=== PATIENT | female | born 1985 | race American Indian/Alaskan Native ===

== ENCOUNTER 2018-04-22 13:37 | Emergency (ER) | payer SELFPAY ==
[2018-04-22 13:58] VITALS: BP 151/79
[2018-04-22] MEDS ORDERED: TYLENOL PO ONE (14:07)
--- NOTE | 2018-04-22 14:08 | Emergency Department Report ---
Minor Respiratory - HPI Chief Complaint: Headache Stated Complaint: MIGRAINES/LOWER BACK PAIN/N/V Time Seen by Provider: 04/22/18 14:03 Duration: 5 Days Pain Location: Other Severity: mild Minor Respiratory: Yes Able to Tolerate Fluids, No Rhinorrhea, No Sore Throat, No Ear Pain, No Cough, No Sick Contacts, No Hemoptysis, No Chest Pain, No Shortness of Breath, No Fever Other History: 33 YO AA FEMALE WITH NUMEROUS COMPLAINTS. ON EXAM SHE SHARES SHE IS CONCERNED SHE IS . LMP 12-2. NO HOME PREG TEST. SHE HAS HAD HEADACHE. LOW BACK ACHE. AND NAUSEA. SHE IS NOT CONCERNED WITH STD. SHE HAS HAD 1 SEXUAL PARTNER FOR 12 YEARS. ED Review of Systems ROS: Stated complaint: MIGRAINES/LOWER BACK PAIN/N/V Other details as noted in HPI Comment: All other systems reviewed and negative Eyes: denies: eye pain ENT: denies: throat pain Respiratory: denies: orthopnea Cardiovascular: denies: dyspnea on exertion Endocrine: denies: excessive sweating Gastrointestinal: as per HPI, nausea Genitourinary: as per HPI, abnormal menses Musculoskeletal: as per HPI, back pain ED Past Medical Hx - Past Medical History Previous Medical History?: No - Surgical History Past Surgical History?: No - Social History Smoking Status: Never Smoker Substance Use Type: None - Medications Home Medications: Home Medications Medication Instructions Recorded Confirmed Last Taken Type Fluconazole [Diflucan] 150 mg PO ONCE #1 tablet 04/22/18 Unknown Rx Sulfamethoxazole/Trimethoprim 1 each PO BID #6 tablet 04/22/18 Unknown Rx [Bactrim Ds Tablet] Minor Respiratory Exam - Exam General: Vital signs noted. No distress. Alert and acting appropriately. HEENT: Yes Moist Mucous Membranes, No Pharyngeal Erythema, No Pharyngeal Exudates, No Rhinorrhea, No Conjuctival Injection, No Frontal Tenderness, No Maxillary Tenderness Ear: Neither TM Bulge, Neither TM Erythema, Neither EAC Pain, Neither EAC Discharge Neck: Yes Supple, No Adenopathy Lungs: Yes Good Air Exchange, No Wheezes, No Ronchi, No Stridor, No Cough, No Labored Respirations, No Retractions, No Use of Accessory Muscles, No Other Abnormal Lung Sounds Heart: Yes Regular, No Murmur Abdomen: Yes Normal Bowel Sounds, No Tenderness, No Peritoneal Signs Skin: No Rash, No Edema Neurologic: Alert and oriented, no deficits. Musculoskeletal: Unremarkable. ED Course Vital Signs 04/22/18 13:56 Temperature 98.3 F Pulse Rate 89 Respiratory 20 Rate Blood Pressure 151/79 O2 Sat by Pulse 100 Oximetry ED Medical Decision Making - Medical Decision Making PREG NEG GIVEN SYMPTOMS AND SM LEUK/YEAST WILL TREAT WITH BACTRIM/DIFLUCAN VSS NON TOXIC AMBULATORY NO FEVER TAKING PO DC HOME WITH PCP REFERRAL Labs 04/22/18 14:34 Urine Color Yellow Urine Turbidity Cloudy Urine pH 6.0 Ur Specific [place] 1.012 Urine Protein <15 mg/dl Urine Glucose (UA) Neg Urine Ketones Neg Urine Blood Sm Urine Nitrite Neg Urine Bilirubin Neg Urine Urobilinogen 4.0 Ur Leukocyte Esterase Sm Urine WBC (Auto) 5.0 Urine RBC (Auto) 3.0 U Epithel Cells (Auto) 19.0 H Urine Bacteria (Auto) 2+ Urine Mucus Few Urine Yeast (Budding) 1+ Urine HCG, Qual Negative - Differential Diagnosis RO PREG Critical care attestation.: If time is entered above; I have spent that time in minutes in the direct care of this critically ill patient, excluding procedure time. ED Disposition Clinical Impression: Yeast infection, UTI (urinary tract infection) Disposition: DC-01 TO HOME OR SELFCARE Is pt being admited?: No Does the pt Need Aspirin: No Condition: Stable Instructions: Urinary Tract Infection in Women (ED) Additional Instructions: DRINK 2 GALLONS OF WATER PER DAY MEDS ORDERED TODAY MOTRIN OR TYLENOL FOR PAIN OR FEVER FOLLOW UP PCP REFERRAL BELOW EAT YOGURT DAILY NEGATIVE Prescriptions: Fluconazole [Diflucan] 150 mg PO ONCE #1 tablet Sulfamethoxazole/Trimethoprim [Bactrim Ds Tablet] 1 each PO BID #6 tablet Referrals: MARCIANO SANCHEZ MD [Primary Care Provider] - 3-5 Days Forms: Work/School Release Form(ED) Time of Disposition: 15:34
[2018-04-22 15:25] LABS: Bacteria,Urine 2+ /HPF (Negative); Bilirubin,Urine NEG (Negative); Blood,Urine SM (Negative); Color,Urine Yellow (Yellow); Mucus,Urine FEW /HPF; Protein,Urine <15 mg/dL mg/dL (Negative)
[2018-04-22 15:26] LABS: HCG Qualitative,Urine Negative (Negative)
== END 2018-04-22 15:48 | disposition home or self-care (01) ==
LOC: ED 13:37
DX: N39.0 Urinary tract infection, site not specified (principal); B37.9 Candidiasis, unspecified; G43.909 Migraine, unspecified, not intractable, without status migrainosus
CPT/HCPCS: 81001; 81025; 99283